=== PATIENT | female | born 1950 | race Two or more races ===

== ENCOUNTER 2019-05-23 12:49 | Inpatient (IN) | payer OTHER ==
[~2019-05-23] VITALS: Ht 162.6 cm; Wt 113.4 kg
[2019-05-23] MEDS ORDERED: ZESTRIL10 M1 (13:23)
[2019-05-23] MEDS ORDERED: SYNTHROID137 MCG (13:23)
[2019-05-23] MEDS ORDERED: VENTOLIN HFA18 GM (13:24)
[2019-05-23] MEDS ORDERED: BREO ELLIPTA I1 EACH (13:24)
[2019-05-23] MEDS ORDERED: EMBREL (13:25)
[2019-05-23] MEDS ORDERED: [UNRECOGNIZED DRUG - OTHER] (13:25)
--- NOTE | 2019-05-23 13:26 | NUR ---
PACIENTE ALERTA,ACTIVA Y ORIENTADA.REFIERE VARIOS CON DOLOR DE EUSEBIO Y CORPO- RAL,TOS Y FIEBRE.
--- NOTE | 2019-05-23 16:34 | NUR ---
EVALUA PTE. SE ORIENTA A PTE SOBRE TX MEDICO. PTE REFIERE COMPRENDER. SE REALIZAN MUESTRAS DE LABORATORIO BAJO MEDIDAS ASEPTICAS. SE ADMINISTRAN MEDICAMENTOS DOMITILA ORDEN MEDICA. SE NOTIFICAN TERAPIAS RESPIRATORIAS A . PROCEDIMIENTOS LLEVADOS A CABO POR .
--- NOTE | 2019-05-23 20:00 | NUR ---
SE NOTIFICA A TERAPIA RESPIRATORIA TERAPIAS Y PIC FLOW LUEGO DE TERAPIAS
--- NOTE | 2019-05-24 00:41 | NUR ---
SE RECIBE PACIENTE ALERTA Y ORIENTADA X3 SE COLOCA EN NAOMI CON BARANDAS ELEVADAS Y CABECERA A 45 GRADOS. SE COLOCA EN HABITACION EN ISO/GOTAS. SE ADMINISTRA MEDICAMENTO DOMITILA ORDEN MEDICA, LA PACIENTE TOLERA INTERVENCION DEL RN. SE MANTIENE BAJO OBSERVACION POR CAMBIOS.
--- NOTE | 2019-05-24 07:57 | NUR ---
SE RECIBE PTE DEL TURNO ANTERIOR ALERTA Y ORIENTADA X3. PTE CON ISOLATION DROPLETS POR INFLUENZA Y MYCOPLASMA. PIEL TIBIA AL TACTO CON AREA DE VEOPUNCION VERÓNICA DE EDEMA Y ENROJECIMIENTO RECIBIENDO 0.9%NSS @60 ML/HR. LIANA DOERO COLECTA MUESTRAS DE LABORATORIO BAJO MEDIDAS ASEPTICAS Y SON ENVIADAS A LABORATORIO. SE NOTIFICA ABG'S A MR. MELÉNDEZ.
== END 2019-05-30 16:17 | disposition home or self-care (01) | DRG 202 ==
LOC: ER 12:49 → SEC-K 05-24 11:13 → MEDJ 05-24 11:13
PROVIDERS: ADMIT Internal Medicine
PROC: 4A033R1 Measurement of Arterial Saturation, Peripheral, Percutaneous Approach (ICD-10-PCS; principal; 2019-05-24)
PROC: 3E0F7GC Introduction of Other Therapeutic Substance into Respiratory Tract, Via Natural or Artificial Opening (ICD-10-PCS; 2019-05-24)
PROC: 8E0ZXY6 Isolation (ICD-10-PCS; 2019-05-24)
DX: J20.0 Acute bronchitis due to Mycoplasma pneumoniae (principal); J10.08 Influenza due to other identified influenza virus with other specified pneumonia; J15.7 Pneumonia due to Mycoplasma pneumoniae; J45.41 Moderate persistent asthma with (acute) exacerbation; J10.1 Influenza due to other identified influenza virus with other respiratory manifestations; I10 Essential (primary) hypertension; E03.8 Other specified hypothyroidism; R09.02 Hypoxemia; Z90.5 Acquired absence of kidney